=== PATIENT | male | born 1980 | race Caucasian/White ===

== ENCOUNTER 2025-03-20 03:10 | Inpatient (IN) | payer SELFPAY ==
--- OUTSIDE RECORDS SUMMARY | 2025-03-20 03:14 | XMS_ITS | Encounter Summary ---
Author Organization [facility] Address [address] [place] [address] Care Team Providers Care Accounting Assistant Name Role Phone Non-Staff, Physician Primary Care Provider Unava ilable Encounter Details Date Type Department Care Team (Latest Contact Info) Description 01/23/2007 Outpatient Historical [facility] Medicine [address] [place] [address] Jair Kulkarni MD NO ADDRESS ON FILE Acute Gastritis (Primary Dx) Social History Tobacco Use Types Packs/Day Years Used Date Smoking Tobacco: Never Assessed Sex and Gender Information Value Date Recorded Sex Assigned at Not on file 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 Gender Identity Not on file Sexual Orientation Not on file documented as of this encounter Plan of Treatment Not on file documented as of this encounter Visit Diagnoses Diagnosis Acute gastritis- Primary Acute gastritis without mention of hemorrhage documented in this encounter Additional Health Concerns Infection Onset Date Last Indicated Resolved Time R/O COVID-19 10/19/2020 10/19/2020 10/19/2020 1:05 PM CDT documented as of this encounter Care Teams Accounting Assistant Relationship Specialty Start Date End Date Non-Staff, Physician NO ADDRESS ON FILE PCP - General 10/10/11 07/29/12 documented as of this encounter
--- OUTSIDE RECORDS SUMMARY | 2025-03-20 03:14 | XMS_ITS | Encounter Summary ---
Author Organization [facility] Address [address] [place] [address] Care Team Providers Care Ribbon Tier Name Role Phone Unavailable Primary Care Provider Unavailabl e Encounter Details Date Type Department Care Team (Late st Contact Info) Description 11/24/2018 Ancillary Orders [facility] [place] [address] Floyd Lucero, DO [address] [place] [address] Status post open reduction with internal fixation of fracture Social History Tobacco Use Types Packs/Day Years Used Date Smoking Tobacco: Every Day Cigarettes 1 18 Smokeless Tobacco: Never Alcohol Use Standard Drinks/Week Comments Yes 0 (1 standard drink = 0.6 oz pur e alcohol) socially Sex and Gender Information Value Date Recorded Sex Assigned at Not on file 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 Gender Identity Not on file Sexual Orientation Not on file Occupation Industry Job Start Date Job End Date Not on file Not on file Not on file Not on file Not on file Not on file Not on file Not on file documented as of this encounter Plan of Treatment Not on file documented as of this encounter Results * XR WRIST 3+ VW RIGHT (11/28/2018 8:29 AM CDT) Anatomical Region Laterality Modality Wrist / Hand Computed Radiogr aphy Narrative 11/29/2018 10:29 AM CDT X-RAYS: The x-rays of the right wrist were reviewed and revealed excellent position and alignment of the distal radius fracture and hardware. Floyd Lucero D.O. [facility] JYOSELYN/adryan Floyd Lucero DO DIAGNOSTIC IMAGING ORDERAB LES Final Result documented in this encounter Visit Diagnoses Diagnosis Status post open reduction with internal fixation of fracture Status post open reduction with internal fixation of fracture documented in this encounter Additional Health Concerns Infection Onset Date Last Indicated Resolved Time R/O COVID-19 10/19/2020 10/19/2020 10/19/2020 1:05 PM CDT documented as of this encounter
--- OUTSIDE RECORDS SUMMARY | 2025-03-20 03:14 | XMS_ITS | Encounter Summary ---
Author Organization [facility] Address [address] [place] [address] Care Team Providers Care Senior Oracle Developer Name Role Phone Unavailable Primary Care Provider Unavailabl e Encounter Details Date Type Department Care Team (Late st Contact Info) Description 12/08/2018 Ancillary Orders [facility] [place] [address] Floyd Lucero, DO [address] [place] [address] Other closed fracture of distal end of right radius with routine healing, subsequent encounter Social History Tobacco Use Types Packs/Day Years Used Date Smoking Tobacco: Every Day Cigarettes 1 18 Smokeless Tobacco: Never Alcohol Use Standard Drinks/Week Comments Yes 0 (1 standard drink = 0.6 oz pur e alcohol) socially Sex and Gender Information Value Date Recorded Sex Assigned at Not on file 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 Gender Identity Not on file Sexual Orientation Not on file Occupation Industry Job Start Date Job End Date Not on file Not on file Not on file Not on file Not on file Not on file Not on file Not on file documented as of this encounter Plan of Treatment Scheduled Orders Name Type Priority Associated Diagnoses Orde r Schedule XR WRIST 3+ VW RIGHT Imaging Routine Other closed fracture of distal end of right radius with routine healing, subsequent encounter 1 Occurrences starting 12/08/2018 until 12/09/2019 documented as of this encounter Visit Diagnoses Diagnosis Other closed fracture of distal end of right radius with routine healing, subsequent encounter documented in this encounter Additional Health Concerns Infection Onset Date Last Indicated Resolved Time R/O COVID-19 10/19/2020 10/19/2020 10/19/2020 1:05 PM CDT documented as of this encounter
--- OUTSIDE RECORDS SUMMARY | 2025-03-20 03:14 | XMS_ITS | Encounter Summary ---
Author Organization [facility] Address [address] [place] [address] Care Team Providers Care Commercial Loan Collection Officer Name Role Phone Unavailable Primary Care Provider Unavailabl e Encounter Details Date Type Department Care Team (Late st Contact Info) Description 10/23/2018 Ancillary Orders [facility] [place] [address] Floyd Lucero, DO [address] [place] [address] Injury of right wrist, initial encounter Social History Tobacco Use Types Packs/Day Years Used Date Smoking Tobacco: Every Day Cigarettes 1 18 Smokeless Tobacco: Never Alcohol Use Standard Drinks/Week Comments Yes 0 (1 standard drink = 0.6 oz pur e alcohol) socially Sex and Gender Information Value Date Recorded Sex Assigned at Not on file 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 Gender Identity Not on file Sexual Orientation Not on file Occupation Industry Job Start Date Job End Date Not on file Not on file Not on file Not on file Not on file Not on file Not on file Not on file documented as of this encounter Plan of Treatment Not on file documented as of this encounter Results * XR WRIST 2 VW RIGHT (10/24/2018 9:36 AM CDT) Anatomical Region Laterality Modality Wrist / Hand Computed Radiogr aphy Narrative 10/26/2018 4:46 PM CDT X-RAYS: Plain film x-rays demonstrate a dorsally displaced volarly angulated right distal radius fracture with about 40 degrees of apex volar angulation. Moderate dorsal comminution with no apparent intraarticular comminution. Floyd Lucero D.O. [facility] REINALDO/adryan Floyd Lucero DO DIAGNOSTIC IMAGING ORDERAB LES Final Result documented in this encounter Visit Diagnoses Diagnosis Injury of right wrist, initial encounter Injury of right wrist, initial encounter documented in this encounter Additional Health Concerns Infection Onset Date Last Indicated Resolved Time R/O COVID-19 10/19/2020 10/19/2020 10/19/2020 1:05 PM CDT documented as of this encounter
--- OUTSIDE RECORDS SUMMARY | 2025-03-20 03:14 | XMS_ITS | Encounter Summary ---
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 [facility] REINALDO/adryan us Floyd Lucero DO DIAGNOSTIC IMAGING ORDERAB LES [...]
--- OUTSIDE RECORDS SUMMARY | 2025-03-20 03:14 | XMS_ITS | Encounter Summary ---
Author Organization [facility] Address [address] [place] [address] Care Team Providers Care Plastic Production Machine Setter Name Role Phone Non-Staff, Physician Primary Care Provider Unava ilable Encounter Details Date Type Department Care Team (Latest Contact Info) Description 11/16/2006 Outpatient Historical [facility] Medicine [address] [place] [address] Jair Kulkarni MD NO ADDRESS ON FILE Allergic Rhinitis, Cause Unspecified (Primary Dx); Unspecified Nasal Polyp; Unspecified Asthma Social History Tobacco Use Types Packs/Day Years Used Date Smoking Tobacco: Never Assessed Sex and Gender Information Value Date Recorded Sex Assigned at Not on file 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 Gender Identity Not on file Sexual Orientation Not on file documented as of this encounter Plan of Treatment Not on file documented as of this encounter Visit Diagnoses Diagnosis Allergic rhinitis, cause unspecified- Primary Unspecified nasal polyp Unspecified asthma(493.90) Unspecified asthma documented in this encounter Additional Health Concerns Infection Onset Date Last Indicated Resolved Time R/O COVID-19 10/19/2020 10/19/2020 10/19/2020 1:05 PM CDT documented as of this encounter Care Teams Plastic Production Machine Setter Relationship Specialty Start Date End Date Non-Staff, Physician NO ADDRESS ON FILE PCP - General 10/10/11 07/29/12 documented as of this encounter
--- OUTSIDE RECORDS SUMMARY | 2025-03-20 03:14 | XMS_ITS | Clinical Summary ---
Author Organization [facility] Address [address] [place] [address] Phone Care Team Providers Care Half Backer Name Role Phone Unavailable Primary Care Provider Unavailabl e Allergies No known active allergies Medications diphenhydrAMINE (BENADRYL) 25 mg tablet Take 1 Tablet (25 mg) by mouth every 6 hours as needed for Allergies. 30 Tablet 03/01/2022 Active aspirin (ECOTRIN EC) 81 mg Tablet, Delayed Release (E.C.) Take 1 Tablet (81 mg) by mouth daily. 90 Tablet 03/02/2022 Active predniSONE (DELTASONE) 50 mg tablet Take 1 Tablet (50 mg) by mouth daily with breakfast. 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 Acute respiratory failure with hypoxia and hyper capnia 02/27/2022 COPD with exacerbation 02/27/2022 Alcoholism 02/27/2022 Tobacco use 02/27/2022 Elevated troponin 02/27/2022 AR (allergic rhinitis) Encounters Date Type Department Care Team Description 02/13/2025 External Device Data [facility] ABSTRACTION Provider, Abstract 02/12/2025 External Device Data [facility] ABSTRACTION Provider, Abstract 02/12/2025 External Device Data [facility] ABSTRACTION Provider, Abstract 01/09/2025 External Device Data [facility] AB[facility]CTION Provider, Abstract 01/09/2025 External Device Data [facility] AB[facility]CTION Provider, Abstract 12/25/2024 External Device Data [facility] ABSTRACTION Provider, Abstract from Last 3 Months Social History Tobacco Use Types Packs/Day Years Used Date Smoking Tobacco: Every Day Cigarettes Smokeless Tobacco: Never Tobacco Cessation:Ready to Q uit: Not Asked; Counseling Given: Not Answered Alcohol Use Standard Drinks/Week Comments Yes 0 (1 standard drink = 0.6 oz pur e alcohol) Feeling Safe Answer Date Recorded Are you in a relationship wi th someone who hurts you emotionally and/or physically? 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 Gender Identity Not on file Sexual Orientation Not on file Last Filed Vital Signs Vital Sign Reading Time Taken Comments Blood Pressure 114/71 02/24/2024 9:30 PM CDT Pulse 80 02/24/2024 9:30 PM CDT Temperature 36.7 C (98 F) 03/27/2022 8:00 PM CDT Respiratory Rate 20 02/24/2024 9:30 PM CDT Oxygen Saturation 94% 02/24/2024 9:30 PM CDT Inhaled Oxygen Concentration - - Weight 54.4 kg (120 lb) 02/24/2024 7:06 PM CDT Height 162.6 cm (5' 4 ) 02/24/2024 7:06 PM CDT Body Mass Index 20.6 02/24/2024 7:06 PM CDT Plan of Treatment Health Maintenance Due Date Last Done Comments DTAP/TDAP/TD VACCINES (1 - Tdap) 12/02/1999 HEPATITIS B VACCINES (1 of 3 - 19+ 3-dose series) 12/1999 HPV VACCINES (1 - 3-dose SCDM series) 12/02/2007 INFLUENZA VACCINE (#1) 2025 Medical Devices Implanted Type Area Soaker Hides Device Identifier Shelf Expiration Date Model / Serial / Lot Plate Vdr Ti Std Rt 3h [id number] - [id number] Implanted:Qty: 1 on 10/26/2018 by Floyd Lucero DO Plate Right: Wrist [employer] [id number]- [id number] / / Screw Lp Loc 3.5x14mm Ar-8935l-14 - [id number] Implanted:Qty: 1 on 10/26/2018 by Floyd Lucero DO Screw Right: Wrist [employer] AR-8935L-14 / / Screw Lp Ti 3.5x14mm Ar-8935-14 - [id number] Implanted:Qty: 1 on 10/26/2018 by Floyd Lucero DO Screw Right: Wrist [employer] AR-8935-14 / / Screw Lp Ti 3.5x16mm Ar-8935-16 - [id number] Implanted:Qty: 1 on 10/26/2018 by Floyd Lucero DO Screw Right: Wrist [employer] AR-8935-16 / / Screw Juliane Ti 2.4x18mm Ar-8724v-18 - [id number] Implanted:Qty: 2 on 10/26/2018 by Floyd Lucero DO Screw Right: Wrist [employer] AR-8724V-18 / / Screw Juliane Ti 2.4x22mm Ar-8724v-22 - [id number] Implanted:Qty: 5 on 10/26/2018 by Floyd Lucero DO Screw Right: Wrist [employer] AR-8724V-22 / / Explanted Type Area Soaker Hides Device Identifier Shelf Expiration Date Model / Serial / Lot Screw Ian Ti 2.4x24mm [id number] - [id number] Implanted:Floyd Braxton DO (Quantity not on file) Explanted:Qty: 1 on 10/26/2018 by Floyd Lucero DO Screw Right: Wrist [employer] [id number] / / Advance Directives For more information, please contact: [phone] * Full Code (Latest Code Status on File) Date Activated Date Inactivated Comments 02/27/2022 8:17 AM 03/01/2022 4:20 PM
--- OUTSIDE RECORDS SUMMARY | 2025-03-20 03:14 | XMS_ITS | Clinical Summary ---
Author Organization [facility] Address [address] [place] [address] Phone Care Team Providers Care Budget Examiner Name Role Phone Unavailable Primary Care Provider Unavailabl e Allergies No known active allergies Medications albuterol 90 mcg/Actuation Inhalation HFAA inhaler Take 2 Puffs by inhalation every 6 hours as needed for Wheezing or Shortness of Breath. Use with a spacer. 8.5 Gram None 3 Active albuterol HFA 90 mcg inhaler Take 4 Puffs by inhalation every 4 hours as needed for Shortness of Breath. 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 Gender Identity Not on file Sexual Orientation Not on file Occupation Industry Job Start Date Job End Date Not on file Not on file Not on file Not on file Not on file Not on file Not on file Not on file Last Filed Vital Signs Vital Sign Reading Time Taken Comments Blood Pressure 116/79 10/19/2020 1:45 PM CDT Pulse 75 10/19/2020 1:45 PM CDT Temperature 37.4 C (99.4 F) 10/19/2020 12:08 PM CDT Respiratory Rate 20 10/19/2020 1:45 PM CDT Oxygen Saturation 96% 10/19/2020 1:45 PM CDT Inhaled Oxygen Concentration - - Weight 49.9 kg (110 lb) 10/19/2020 12:08 PM CDT Height 162.6 cm (5' 4 ) 10/19/2020 12:08 PM CDT Body Mass Index 18.88 10/19/2020 12:08 PM CDT Plan of Treatment Health Maintenance Due Date Last Done Comments HEPATITIS B VACCINES (1 of 3 - 19+ 3-dose series) 12/1999 HPV VACCINES (1 - 3-dose SCDM series) 12/02/2007 INFLUENZA VACCINE (#1) 2025 DTAP/TDAP/TD VACCINES (2 - Td or Tdap) 11/08/2031 Medical Devices Implanted Type Area Train Starter Device Identifier Shelf Expiration Date Model / Serial / Lot Plate Vdr Ti Std Rt 3h [id number] - [id number] Implanted:Qty: 1 on 10/26/2018 by Floyd Lucero DO at [facility] Plate Right: Wrist [employer] [id number]- 03 / / Screw Juliane Ti 2.4x18mm Ar-8724v-18 - [id number] Implanted:Qty: 2 on 10/26/2018 by Floyd Lucero DO at [facility] Screw Right: Wrist [employer] AR-8724V-18 / / Screw Juliane Ti 2.4x22mm Ar-8724v-22 - [id number] Implanted:Qty: 5 on 10/26/2018 by Floyd Lucero DO at [facility] Screw Right: Wrist [employer] AR-8724V-22 / / Screw Lp Loc 3.5x14mm Ar-8935l-14 - [id number] Implanted:Qty: 1 on 10/26/2018 by Floyd Lucero DO at [facility] Screw Right: Wrist [employer] AR-8935L-14 / / Screw Lp Ti 3.5x14mm Ar-8935-14 - [id number] Implanted:Qty: 1 on 10/26/2018 by Floyd Lucero DO at [facility] Screw Right: Wrist [employer] AR-8935-14 / / Screw Lp Ti 3.5x16mm Ar-8935-16 - [id number] Implanted:Qty: 1 on 10/26/2018 by Floyd Lucero DO at [facility] Screw Right: Wrist [employer] AR-8935-16 / / Explanted Type Area Train Starter Device Identifier Shelf Expiration Date Model / Serial / Lot Screw Ian Ti 2.4x24mm [id number] - [id number] Implanted:Floyd Braxton DO (Quantity not on file) Explanted:Qty: 1 on 10/26/2018 by Floyd Lucero DO at [facility] Screw Right: Wrist [employer] [id number] / / Advance Directives For more information, please contact: [phone] * Full Code (Latest Code Status on File) Date Activated Date Inactivated Comments 10/26/2018 2:10 PM 10/26/2018 6:56 PM * Full Code Date Activated Date Inactivated Comments 10/26/2018 8:26 AM 10/26/2018 2:09 PM
[2025-03-20 03:18] VITALS: BP 142/100; PULSE 79; RESP 19; TEMP 36.7; O2SAT 98
[2025-03-20 03:27] VITALS: BMI 20.5
[2025-03-20 05:15] VITALS: PULSE 81; RESP 17; O2SAT 96
[2025-03-20] MEDS: multivitamin therapeutic Tablet 1 TAB PO (08:31)
--- NOTE | 2025-03-20 09:00 | PC.OT ---
OT EVALUATION ATTEMPTED; PER NURSING, HOLD OT EVAL FOR GROUPS UNTIL AFTER DR SEES THE PATIENT.
[2025-03-20 13:16] LABS: PCP Screen Urine Negative (Negative)
[2025-03-20 17:40] VITALS: PULSE 72; RESP 16; O2SAT 94
--- NOTE | 2025-03-20 17:59 | P.NPUHP_ITS ---
Providers/Chief Complaint Admitting Physician: Zhen Cruz MD Chief Complaint: SI\Detox HPI NPU History of Present Illness Foreign Moreau is a 44 year old male who presented to the emergency department at [facility] in [facility] via EMS on 03/18/25 after the patient had reported that he had taken a shotgun and placed it under his chin with thoughts of wanting to pull the trigger. The patient was also reporting that he was having thoughts of harming his and stated that he knew that he was not doing well and threw the gun away from him and called emergency services. The patient presented with a blood alcohol level of 287 at that time. He reports having a significant problem with alcohol abuse. He reports that he drinks approximately 2 L of whiskey nearly every day and reports continued use despite adverse consequences including reports of having vomited blood before in the past. He reports that the longest period of time that he has been sober since the age of 16 without using alcohol is 2 months. He reports a history of alcohol related shakes and withdrawal symptoms. He reports having blackouts. He reports that he continues to use despite adverse consequences including a declining relationship with his and family. The patient reports that he wants to stop the use of alcohol. He reports as well having problems with depressed mood. He reports he has been depressed for several months. He endorses at times feeling suicidal and states he has feelings of guilt about his drinking. He also reports that he has intense dreams and nightmares and reported at times that he has dreams that demons are is in his head and telling him to shoot him. He had denied any auditory hallucinations. The patient denies any history of steffanie. He does report a long history of problems with ADHD stating that he had taken medications to help him with his problems with inattention and hyperactivity as a child but these medications were discontinued because of substantial weight loss. He continues to report having struggles with staying on task and reports having difficulties sitting still. He reports that he is frequently fidgety and struggles with poor concentration. He also reports having some feelings of hopelessness and worthlessness. He reports that he often is overwhelmed by his anxiety. He reports that he has not used any other drugs other than alcohol. He reports that he has previously been desiring a inpatient substance abuse treatment center but states that due to financial concerns his has not been supportive of him being out of work and away to get help. Inpatient psychiatric history: He reports this is his third psychiatric hospitalization with the last inpatient psychiatric hospitalization for depression having occurred 2 years ago in a hospital in [place]. Outpatient psychiatric history: None currently although he had reported receiving services through the outpatient clinic at [facility] Substance abuse history: He denies any history of illicit substance use. He reports that he began drinking at the age of 16 and reported a history of outpatient substance abuse treatment only through [facility]. Medical history: COPD, seasonal allergies, GERD Surgical history: Repair of fractured wrist Allergies: No known drug allergies Medications: Albuterol inhaler Legal history: Prior history of DUI several years ago. Family psychiatric history: Notable for both biological parents having a history of alcoholism Social history: Patient was born in [place] to a family. He states that his biological parents when the patient was 9 years old. He is the second youngest and has 3 sisters. He had reported having problems with sustaining attention and ultimately dropped out of high school but returned to earn his diploma and attended trade school having taken Ritalin for ADHD as a child. He had reported no history of sexual, physical, or emotional abuse. He has been for 15 years. He had 2 adult stepchildren that are out of the home. He currently lives with his in [facility] [place] [facility] along with his [id number] and his [id number]-[id number]'s boyfriend. 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 Meds NPU Home Medications ?Medication ?Instructions ?Recorded ?Confirmed ?Last Taken ?Type albuterol sulfate 90 mcg/actuation 2 puff inhalation Q 4H PRN 03/20/25 03/20/25 Unknown History aerosol inhaler Shortness Of Breath Or Wheez ing Allergies Allergy/AdvReac Type Severity Reaction Status Date / Time No Known Allergies Allergy Verified 03/20/25 03:54 Mental Status Exam MSE Comments: Patient is a pleasant cooperative male who appeared his stated age he was somewhat fidgety on interview. There was no other evidence of any abnormal involuntary motor movements, tics, or tremors appreciated. His speech was diminished in volume but normal in rate and rhythm. His mood was described as depressed. His affect was restricted in range and mood congruent. His thought process was linear, logical, and goal-directed. His thought content revealed suicidal ideation with a plan to shoot himself with his gun. He denied any homicidal ideation currently. He did not appear to be responding to internal stimuli. There was no evidence of delusional thinking. He was alert and oriented to person, place, time, and situation. His attention span was poor. His recent and remote memory were grossly intact. He is insight is fair. His judgment was poor. His impulse control is poor. Vitals/I&O/Wt Last Vital Signs Temp 98.1 F 03/20/25 03:18 Pulse 72 03/20/25 17:40 Resp 16 03/20/25 17:40 BP 142/100 03/20/25 03:18 Pulse Ox 94 03/20/25 17:40 O2 Del Method Room Air 03/20/25 17:40 Weight last 48 hrs Weight 54.431 kg Weight 54.431 kg A&P Assessment and plan 1. Depression, unspecified: 2. Alcohol dependence: 3. Suicidal ideation: Plan: 44-year-old male admitted after endorsing suicidal ideation with heavy alcohol use and reports of worsening depression. #1.? Engage patient in individual milieu and group therapy. #2?? Recommend sober living treatment at the highest level of care to which the patient is willing to commit #3??? CIWA for alcohol withdrawal? #4?? TO-15 minute checks? #5?? Will attempt to gather collateral information, consider antidepressant. PDMP PDMP Reviewed: Not Reviewed Involuntary Hold Information Hold Status: Date/Time Hold Expires: Voluntary Attestations NPU Medical Necessity Statement*: Inpatient hospitalization is medically necessary and deemed to ?be ?the clinically appropriate intervention ?at this time.? We will monitor/initiate medications and make changes as indicated.? The patient will be hospitalized for at least two midnights. The patient?s likely length of stay 5-7 days. Coding Level of Care Code Acute Code for [facility] Fwd Diagnoses Depression, unspecified F32.A Alcohol dependence F10.20 Suicidal ideation R45.851
[2025-03-20 22:00] VITALS: BP 124/83; PULSE 74; RESP 18; TEMP 37; O2SAT 98
[2025-03-21] VITALS (7 sets, daily range): BP systolic 108–126; BP diastolic 62–79; PULSE 59–70; RESP 16–18; TEMP 36.6–36.8; O2SAT 96–99
--- NOTE | 2025-03-21 07:29 | PC.NURSE ---
resp this nurse called and spoke with resp to obtain and prn breathing treatment
[2025-03-21] MEDS: multivitamin therapeutic Tablet 1 TAB PO (08:26)
--- NOTE | 2025-03-21 08:49 | NUR.SHIFT ---
Pt states that he barely slept night (there were a lot of disruptions on the unit in the night) Pt rates his anxiety a 3/10 and depression a 6/10. No reports of SI/HI or hallucinations. No pain reported. He is calm and cooperative on assessment.
--- NOTE | 2025-03-21 16:53 | P.NPUPN_ITS ---
Subjective NPU Subjective: 44-year-old male with alcohol dependence and a history of ADHD and depression admitted after suicidal ideation including placing a gun to his head. The patient reported that he had continued to feel anxious and appeared to be requiring Ativan for alcohol related withdrawal symptoms yesterday. The patient reported that he continued to feel depressed and hopeless. He had been isolative on the milieu. He had also expressed interest in wanting to resume Ritalin to help him with his chronic problems with staying on task. He had reported that he was trying to be hopeful about the future. He had expressed having struggles with managing his worry and struggled with sitting still for lo ng periods of time. Mental Status Exam MSE Comments: Patient is a pleasant cooperative male with minimal hygiene who appeared his stated age he was somewhat fidgety on interview. There was no other evidence of any abnormal involuntary motor movements, tics, or tremors appreciated. His speech was diminished in volume but normal in rate and rhythm. His mood was described as depressed. His affect was anxious. His thought process was linear, logical, and goal-directed. His thought content revealed suicidal ideation with a plan to shoot himself with his gun. He denied any homicidal ideation currently. He did not appear to be responding to internal stimuli. There was no evidence of delusional thinking. He was alert and oriented to person, place, time, and situation. His attention span was poor. His recent and remote memory were grossly intact. He is insight is fair. His judgment was poor. His impulse control is poor. Vitals/I&O/Wt Last Vital Signs Temp 97.9 F 03/21/25 14:38 Pulse 70 03/21/25 15:26 Resp 18 03/21/25 15:26 BP 118/62 03/21/25 14:38 Pulse Ox 98 03/21/25 15:26 O2 Del Method Room Air 03/21/25 15:26 Weight last 48 hrs Weight 54.431 kg Weight 54.431 kg A&P Assessment and plan 1. Depression, unspecified: 2. Alcohol dependence: 3. Suicidal ideation: Plan: 44-year-old male admitted after endorsing suicidal ideation with heavy alcohol use and reports of worsening depression. #1.? Engage patient in individual milieu and group therapy. #2?? Recommend sober living treatment at the highest level of care to which the patient is willing to commit #3??? CIWA for alcohol withdrawal? #4?? TO-15 minute checks? #5?? Will attempt to gather collateral information, start zoloft 25mg daily. PDMP PDMP Reviewed: Not Reviewed Involuntary Hold Information Hold Status: Legal Status: 96 Hour Hold Date/Time Hold Expires: 03/26/25@0327 Attestations NPU Medical Necessity Statement*: Inpatient hospitalization is medically necessary and deemed to ?be ?the clinically appropriate intervention ?at this time.? We will monitor/initiate medications and make changes as indicated.? The patient?s likely length of stay 5-7 days. Coding Level of Care Code Acute Code for [facility] Fwd Diagnoses Depression, unspecified F32.A Alcohol dependence F10.20 Suicidal ideation R45.851
[2025-03-22] VITALS (9 sets, daily range): BP systolic 119–132; BP diastolic 73–89; PULSE 64–75; RESP 16–18; TEMP 36.6–36.8; O2SAT 95–100
[2025-03-22] MEDS: multivitamin therapeutic Tablet 1 TAB PO (08:46)
--- NOTE | 2025-03-22 16:57 | W.PM.NPUPNS ---
Subjective NPU Subjective: 44-year-old male with alcohol dependence and a history of ADHD and depression admitted after suicidal ideation including placing a gun to his head. The patient remained on a hold. He had reported continued depression. He had required some as needed medications for managing anxiety yesterday. He had reported having some difficulties with falling asleep. He had continued to express desire to consider inpatient substance abuse treatment upon discharge here. The patient had reported no clear alcohol related withdrawal symptoms. He had reported having struggles with managing anxiety and continued to report that he wanted to consider going back on a medication to target ADHD. Mental Status Exam MSE Comments: Patient is a pleasant cooperative male with limited hygiene who appeared his stated age he was somewhat fidgety on interview. There was no other evidence of any abnormal involuntary motor movements, tics, or tremors appreciated. His speech was diminished in volume but normal in rate and rhythm. His mood was described as depressed. His affect was restricted today. His thought process was linear, logical, and goal-directed. His thought content revealed suicidal ideation with a plan to shoot himself with his gun. He denied any homicidal ideation currently. He did not appear to be responding to internal stimuli. There was no evidence of delusional thinking. He was alert and oriented to person, place, time, and situation. His attention span was poor. His recent and remote memory were grossly intact. He is insight is fair. His judgment was poor. His impulse control is poor. Vitals/I&O/Wt Last Vital Signs Temp 98 F 03/22/25 16:00 Pulse 69 03/22/25 16:00 Resp 16 03/22/25 16:00 BP 121/74 03/22/25 16:00 Pulse Ox 98 03/22/25 16:00 O2 Del Method Room Air 03/22/25 16:00 A&P Assessment and plan 1. Depression, unspecified: 2. Alcohol dependence: 3. Suicidal ideation: Plan: 44-year-old male admitted after endorsing suicidal ideation with heavy alcohol use and reports of worsening depression. #1.? Engage patient in individual milieu and group therapy. #2?? Recommend sober living treatment at the highest level of care to which the patient is willing to commit #3??? CIWA for alcohol withdrawal? #4?? TO-15 minute checks? #5?? Will attempt to gather collateral information, increase zoloft to 50mg daily. PDMP PDMP Reviewed: Not Reviewed Involuntary Hold Information Hold Status: Legal Status: 96 Hour Hold Date/Time Hold Expires: 03/26/25@0327 Attestations NPU Medical Necessity Statement*: Inpatient hospitalization is medically necessary and deemed to ?be ?the clinically appropriate intervention ?at this time.? We will monitor/initiate medications and make changes as indicated.? The patient?s likely length of stay 5-7 days. Coding Level of Care Code Acute Code for Chg Fwd Diagnoses Depression, unspecified F32.A Alcohol dependence F10.20 Suicidal ideation R45.850
[2025-03-23] VITALS (7 sets, daily range): BP systolic 136–148; BP diastolic 82–90; PULSE 68–83; RESP 16–22; TEMP 36.4–36.9; O2SAT 97–98
[2025-03-23] MEDS: multivitamin therapeutic Tablet 1 TAB PO (08:54)
--- NOTE | 2025-03-23 12:04 | P.NPUPN_ITS ---
Subjective NPU Subjective: 44-year-old male with alcohol dependence and a history of ADHD and depression admitted after suicidal ideation including placing a gun to his head. The patient had denied any suicidal thoughts. He had stated that he would likely have to do outpatient substance abuse treatment and stated that he currently had no insurance at this time. He reported increased stress at home as his is currently being hospitalized for medical reasons. He had reported continued problems with sustaining attention. He had requested restarting Ritalin that had been helpful for his ADHD but this brief writer expressed concern about increased risk of withdrawal seizures and the likelihood that stimulants may lower the seizure threshold. He had reported having some difficulties falling asleep but stated that he was sleeping better with his current medication regimen. He continued to report feeling anxious but denied any alcohol related withdrawal symptoms today. He had reported no prior history of delirium tremens. He had reported history of blackouts and continued to report a high tolerance for alcohol. Mental Status Exam MSE Comments: Patient is a pleasant cooperative male with limited hygiene who appeared his stated age he was somewhat fidgety on interview. There was no other evidence of any abnormal involuntary motor movements, tics, or tremors appreciated. His speech was diminished in volume but normal in rate and rhythm. His mood was described as a little better. His affect remained restricted today. His thought process was linear, logical, and goal-directed. His thought content revealed no suicidal ideation today. He denied any homicidal ideation currently. He did not appear to be responding to internal stimuli. There was no evidence of delusional thinking. He was alert and oriented to person, place, time, and situation. His attention span was poor. His recent and remote memory were grossly intact. He is insight is fair. His judgment was poor. His impul se control is poor. Vitals/I&O/Wt Last Vital Signs Temp 97.6 F 03/23/25 04:00 Pulse 76 03/23/25 07:32 Resp 22 H 03/23/25 07:27 BP 145/90 03/23/25 04:00 Pulse Ox 97 03/23/25 07:27 O2 Del Method Room Air 03/23/25 07:27 A&P Assessment and plan 1. Depression, unspecified: 2. Alcohol dependence: 3. Suicidal ideation: Plan: 44-year-old male admitted after endorsing suicidal ideation with heavy alcohol use and reports of worsening depression. #1.? Engage patient in individual milieu and group therapy. #2?? Recommend sober living treatment at the highest level of care to which the patient is willing to commit #3??? CIWA for alcohol withdrawal? #4?? TO-15 minute checks? #5?? Will attempt to gather collateral information, continue zoloft to 50mg daily and increase seroquel to 75mg at night. PDMP PDMP Reviewed: Not Reviewed Involuntary Hold Information Hold Status: Legal Status: 96 Hour Hold Date/Time Hold Expires: 03/26/25@0327 Attestations NPU Medical Necessity Statement*: Inpatient hospitalization is medically necessary and deemed to ?be ?the clinically appropriate intervention ?at this time.? We will monitor/initiate medications and make changes as indicated.? The patient?s likely length of stay 2-3 days. Coding Level of Care Code Acute Code for g Fwd Diagnoses Depression, unspecified F32.A Alcohol dependence F10.20 Suicidal ideation R45.852
[2025-03-24] VITALS (7 sets, daily range): BP systolic 129–145; BP diastolic 79–92; PULSE 76–98; RESP 16–20; TEMP 36.6–36.8; O2SAT 95–99; BMI 21.9
[2025-03-24] MEDS: multivitamin therapeutic Tablet 1 TAB PO (08:45)
--- NOTE | 2025-03-24 11:58 | P.NPUPN_ITS ---
Subjective NPU Subjective: 44-year-old male with alcohol dependence and a history of ADHD and depression admitted after suicidal ideation including placing a gun to his head. The patient denied any suicidal thoughts currently. He had reported feeling about the same . He had reported that he needed help with depression. He continued to report having difficulties with staying on task. He had reported no alcohol related withdrawal symptoms yesterday. He reports that he will continue with outpatient substance abuse treatment. He had reported struggles with falling asleep last night. He had been isolative on the milieu. Mental Status Exam MSE Comments: Patient is a pleasant ,cooperative male with disheveled appearance. who appeared his stated age he was somewhat fidgety on interview. There was no other evidence of any abnormal involuntary motor movements, tics, or tremors appreciated. His speech was diminished in volume but normal in rate and rhythm. His mood was described as the same. His affect remained restricted today. His thought process was linear, logical, and goal-directed. His thought content revealed no suicidal ideation today. He denied any homicidal ideation currently. He did not appear to be responding to internal stimuli. There was no evidence of delusional thinking. He was alert and oriented to person, place, time, and situation. His attention span was poor. His recent and remote memory were grossly intact. He is insight is fair. His judgment was poor. His impulse control is poor. Vitals/I&O/Wt Last Vital Signs Temp 97.9 F 03/24/25 06:00 Pulse 79 03/24/25 09:23 Resp 20 H 03/24/25 09:23 BP 129/92 03/24/25 06:00 Pulse Ox 98 03/24/25 09:23 O2 Del Method Room Air 03/24/25 09:23 Weight last 48 hrs Weight 58.117 kg A&P Assessment and plan 1. Depression, unspecified: 2. Alcohol dependence: 3. Suicidal ideation: Plan: 44-year-old male admitted after endorsing suicidal ideation with heavy alcohol use and reports of worsening depression. #1.? Engage patient in individual milieu and group therapy. #2?? Recommend sober living treatment at the highest level of care to which the patient is willing to commit #3??? CIWA for alcohol withdrawal? #4?? TO-15 minute checks? #5?? Will attempt to gather collateral information, continue zoloft at 50mg daily and increase seroquel to 100mg at night. PDMP PDMP Reviewed: Not Reviewed Involuntary Hold Information Hold Status: Legal Status: 96 Hour Hold Date/Time Hold Expires: 03/26/25@0327 Attestations NPU Medical Necessity Statement*: Inpatient hospitalization is medically necessary and deemed to ?be ?the clinically appropriate intervention ?at this time.? We will monitor/initiate medications and make changes as indicated.? The patient?s likely length of stay 2-3 days. Coding Level of Care Code Acute Code for Chg Fwd Diagnoses Depression, unspecified F32.A Alcohol dependence F10.20 Suicidal ideation R45.853
[2025-03-25 06:00] VITALS: BP 132/79; PULSE 86; RESP 19; TEMP 36.6; O2SAT 97
[2025-03-25 08:38] VITALS: PULSE 72; RESP 20; O2SAT 98
[2025-03-25] MEDS: multivitamin therapeutic Tablet 1 TAB PO (09:51)
[2025-03-25 14:00] VITALS: BP 125/81; PULSE 81; RESP 18; TEMP 36.9; O2SAT 94
[2025-03-25 15:27] VITALS: PULSE 74; RESP 18; O2SAT 97
--- NOTE | 2025-03-25 15:34 | P.NPUDS_ITS ---
Diagnoses at Discharge Discharge Diagnosis 1. Depression, unspecified: 2. Alcohol dependence: 3. Suicidal ideation: Reason for Visit Reason for Visit: SI\Detox Brief History: History of Present Illness Foreign Moreau is a 44 year old male who presented to the emergency department at [facility] in [facility] via EMS on 03/18/25 after the patient had reported that he had taken a shotgun and placed it under his chin with thoughts of wanting to pull the trigger. The patient was also reporting that he was having thoughts of harming his and stated that he knew that he was not doing well and threw the gun away from him and called emergency services. The patient presented with a blood alcohol level of 287 at that time. He reports having a significant problem with alcohol abuse. He reports that he drinks approximately 2 L of whiskey nearly every day and reports continued use despite adverse consequences including reports of having vomited blood before in the past. He reports that the longest period of time that he has been sober since the age of 16 without using alcohol is 2 months. He reports a history of alcohol related shakes and withdrawal symptoms. He reports having blackouts. He reports that he continues to use despite adverse consequences including a declining relationship with his and family. The patient reports that he wants to stop the use of alcohol. He reports as well having problems with depressed mood. He reports he has been depressed for several months. He endorses at times feeling suicidal and states he has feelings of guilt about his drinking. He also reports that he has intense dreams and nightmares and reported at times that he has dreams that demons are is in his head and telling him to shoot him. He had denied any auditory hallucinations. The patient denies any history of steffanie. He does report a long history of problems with ADHD stating that he had taken medications to help him with his problems with inattention and hyperactivity as a child but these medications were discontinued because of substantial weight loss. He continues to report having struggles with staying on task and reports having difficulties sitting still. He reports that he is frequently fidgety and struggles with poor concentration. He also reports having some feelings of hopelessness and worthlessness. He reports that he often is overwhelmed by his anxiety. He reports that he has not used any other drugs other than alcohol. He reports that he has previously been desiring a inpatient substance abuse treatment center but states that due to financial concerns his has not been supportive of him being out of work and away to get help. Inpatient psychiatric history: He reports this is his third psychiatric hospitalization with the last inpatient psychiatric hospitalization for depression having occurred 2 years ago in a hospital in [place]. Outpatient psychiatric history: None currently although he had reported receiving services through the outpatient clinic at [facility] Substance abuse history: He denies any history of illicit substance use. He reports that he began drinking at the age of 16 and reported a history of outpatient substance abuse treatment only through [facility]. Medical history: COPD, seasonal allergies, GERD Surgical history: Repair of fractured wrist Allergies: No known drug allergies Medications: Albuterol inhaler Legal history: Prior history of DUI several years ago. Family psychiatric history: Notable for both biological parents having a history of alcoholism Social history: Patient was born in [place] to a family. He states that his biological parents when the patient was 9 years old. He is the second youngest and has 3 sisters. He had reported having problems with sustaining attention and ultimately dropped out of high school but returned to earn his diploma and attended trade school having taken Ritalin for ADHD as a child. He had reported no history of sexual, physical, or emotional abuse. He has been for 15 years. He had 2 adult stepchildren that are out of the home. He currently lives with his in [facility] along with his mot her-in-law and his [id number]'s boyfriend. 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 Hospital Course Hospital Course The patient had presented on the unit with an elevated blood alcohol and was placed on a CIWA. He had evidence of withdrawal symptoms and required Ativan initially. He was started on Zoloft to target anxiety and depression and titrated up to a dose of 50 mg daily at the time of discharge. Seroquel was also started and increased up to 100 mg at night to be given adjunctively for targeting depression and anxiety. His sleep showed improvement. He had expressed desire to consider inpatient psychiatric hospitalization for substance abuse but was unable to do so due to financial concerns. He was agreeable to outpatient follow-up near his area. During the hospitalization, the patient had routine laboratory studies which were within normal limits except for a few o utliers.? Additionally, there was a general medical evaluation which was also within normal limits and revealed no new acute processes.? At the time of discharge, lethality was denied and psychosis was resolving.? Mood and anxiety were well managed.? The patient endorsed a plan to avoid all drugs of abuse and follow up with the aftercare recommendations of the treatment team.? The patient was evaluated and deemed to be absent credible lethality and had achieved the maximum benefit from an inpatient hospitalization, and so was discharged. ? Involuntary Hold Information Hold Status: Legal Status: 96 Hour Hold Date/Time Hold Expires: 03/26/25@0327 Mental Status Exam MSE Comments: Patient is a pleasant ,cooperative male with disheveled appearance. who appeared his stated age he was somewhat fidgety on interview. There was no other evidence of any abnormal involuntary motor movements, tics, or tremors appreciated. His speech was normal in volume,in rate, and rhythm. His mood was described as allright. His affect was brighter. His thought process was linear, logical, and goal-directed. His thought content revealed no suicidal ideation today. He denied any homicidal ideation currently. He did not appear to be responding to internal stimuli. There was no evidence of delusional thinking. He was alert and oriented to person, place, time, and situation. His attention span was variable. His recent and remote memory were grossly intact. His insight is fair. His judgment was improved. His impulse control is improving. Discharge Data Studies Completed and Pending: Laboratory Results Urine Opiates Scre en Negative ng/mL (N egative) 03/20/25 12:24 Ur Barbiturates Sc reen Negative ng/mL (N egative) 03/20/25 12:24 Ur Phencyclidine S crn Negative ng/mL (N egative) 03/20/25 12:24 Ur Amphetamines Sc reen Negative ng/mL (N egative) 03/20/25 12:24 U Benzodiazepines Scrn Positive ng/mL (N egative) H 03/20/25 12:24 Urine Cocaine Scre en Negative ng/mL (N egative) 03/20/25 12:24 U Marijuana (THC) Screen Negative ng/mL (N egative) 03/20/25 12:24 Vitals: Last Vital Signs Temp 98.4 F 03/25/25 14:00 Pulse 74 03/25/25 15:27 Resp 18 03/25/25 15:27 BP 125/81 03/25/25 14:00 Pulse Ox 97 03/25/25 15:27 O2 Del Method Room Air 03/25/25 15:27 Discharge Plan Discharge Patient Disposition: Home Condition: Stable Prescriptions: New sertraline 100 mg tablet 50 mg PO DAILY 30 Days Qty: 15 2RF quetiapine 100 mg tablet 100 mg PO BEDTIME 30 Days Qty: 30 2RF multivitamin with folic acid [Thera] 400 mcg Tablet 1 tab PO DAILY 30 Days Qty: 30 1RF folic acid 1 mg Tablet 1 mg PO DAILY 30 Days Qty: 30 1RF Continued albuterol sulfate 90 mcg/actuation Hfa Aerosol Inhaler 2 puff INHALATION Q4H PRN (Reason: Shortness Of Breath Or Wheezing) Discharge Order = DC NOW: Discharge Order (Routine); Ordered 03/25/25 Ordered By: Zhen Cruz Referrals: [facility] [Other] Referral Note: Come in at 8 AM M-F after Hospital Discharge. Bring Hospital Discharge Paperwork, inform assistant front office manager you are there for a walk in assesment. Also ask for Drug rehab outpatient services. Discharge Diet: Usual diet Discharge Activity: Resume usual activity Patient Instructions: Alcohol Abuse, Depression, Quetiapine (By mouth), Depression (DC), Help Prevent Suicide (DC), Opioid Safety, Patient Portal & Ronn Instructions Discharge Attestations NPU Time Spent in Discharge Care*: less than 30 min Specific Discharge Activities: Specific discharge activities: educating patient, discussing with top case assembler/social workers/dc planners and documenting/other paperwork Coding Level of Care Code Acute Code for [facility] Fwd Diagnoses Depression, unspecified F32.A Alcohol dependence F10.20 Suicidal ideation R45.851
[2025-03-25 16:04] VITALS: BP 125/84; PULSE 81; RESP 18; TEMP 36.9; O2SAT 95
--- NOTE | 2025-03-25 19:04 | PC.NURSE ---
pt escorted to waiting private vehicle by REGIONAL REHABILITATION DIRECTOR.
== END 2025-03-25 18:40 | disposition home or self-care (01) | DRG 881 ==
PROVIDERS: Admitting Provider Psychiatry & Neurology Psychiatry; Visit Provider Psychiatry & Neurology Psychiatry
DX: F32.A Depression, unspecified (principal); R45.851 Suicidal ideations; F10.20 Alcohol dependence, uncomplicated; J44.9 Chronic obstructive pulmonary disease, unspecified; Z81.1 Family history of alcohol abuse and dependence; F90.9 Attention-deficit hyperactivity disorder, unspecified type; F41.9 Anxiety disorder, unspecified; Z79.51 Long term (current) use of inhaled steroids
CPT/HCPCS: 80306; 94640; 94664; 97150; 97165; J7613; J9999